=== PATIENT | female | born 1985 | race Caucasian/White ===

== ENCOUNTER → 2023-06-23 06:50 | Outpatient (REF) | payer BC, SELFPAY | LOC: RAD 06:50 | PROVIDERS: ATTENDING PHYSICIAN Anesthesiology; FAMILY PHYSICIAN Nurse Practitioner | DX: M46.1 Sacroiliitis, not elsewhere classified (principal) | CPT/HCPCS: 72192; 72202; 73522 ==

== ENCOUNTER 2023-11-11 09:08 | Outpatient (RCR) | payer BC, SELFPAY ==
[2023-11-11 09:21] VITALS: BP 124/71
[2023-11-11] MEDS: XOLAIR 150 MG SC ×2 (09:32)
== END 2023-11-12 09:14 | disposition home or self-care (01) ==
LOC: OID 09:08
PROVIDERS: ATTENDING PHYSICIAN Internal Medicine; FAMILY PHYSICIAN Nurse Practitioner
DX: J45.50 Severe persistent asthma, uncomplicated (principal)
CPT/HCPCS: 96372; J2357

== ENCOUNTER 2023-12-10 08:58 | Outpatient (RCR) | payer BC, SELFPAY ==
[2023-12-10 09:23] VITALS: BP 113/71
[2023-12-10] MEDS: XOLAIR 300 MG SC (09:29)
== END 2023-12-11 10:08 | disposition home or self-care (01) ==
LOC: OID 08:58
PROVIDERS: ATTENDING PHYSICIAN Internal Medicine; FAMILY PHYSICIAN Nurse Practitioner
DX: J45.50 Severe persistent asthma, uncomplicated (principal)
CPT/HCPCS: 96372; J2357

== ENCOUNTER 2024-01-08 10:28 | Outpatient (RCR) | payer BC, SELFPAY ==
[2024-01-08 10:47] VITALS: BP 127/68
[2024-01-08] MEDS: XOLAIR 1.2 MG SC ×2 (11:08→11:09)
== END 2024-01-09 08:30 | disposition home or self-care (01) ==
LOC: OID 10:28
PROVIDERS: ATTENDING PHYSICIAN Internal Medicine; FAMILY PHYSICIAN Nurse Practitioner
DX: J45.50 Severe persistent asthma, uncomplicated (principal)
CPT/HCPCS: 96372; J2357

== ENCOUNTER 2024-02-06 10:36 | Outpatient (RCR) | payer BC, SELFPAY ==
[2024-02-06 11:13] VITALS: BP 129/66
[2024-02-06] MEDS: XOLAIR 1.2 MG SC ×2 (11:42→11:43)
== END 2024-02-09 10:34 | disposition home or self-care (01) ==
LOC: OID 10:36
PROVIDERS: ATTENDING PHYSICIAN Internal Medicine; FAMILY PHYSICIAN Nurse Practitioner
DX: J45.50 Severe persistent asthma, uncomplicated (principal)
CPT/HCPCS: 96372; J2357

== ENCOUNTER 2024-03-10 08:14 | Outpatient (RCR) | payer BC, SELFPAY ==
[2024-03-10 08:25] VITALS: BP 120/78
[2024-03-10] MEDS: XOLAIR 1.2 MG SC ×2 (08:38→08:39)
== END 2024-03-11 08:33 | disposition home or self-care (01) ==
LOC: OID 08:14
PROVIDERS: ATTENDING PHYSICIAN Internal Medicine; FAMILY PHYSICIAN Nurse Practitioner
DX: J45.50 Severe persistent asthma, uncomplicated (principal)
CPT/HCPCS: 96372; J2357